=== PATIENT | male | born 1975 | race Caucasian/White ===

== ENCOUNTER 2018-05-01 13:31 | Emergency (ER) | payer OTHER ==
[2018-05-01] MEDS ORDERED: Ondansetron 4 MG Tab.DIS ONE (14:00)
--- NOTE | 2018-05-01 15:25 | EDM.PDOC ---
ED HPI GENERAL MEDICAL PROBLEM - General Chief Complaint: General Stated Complaint: VERTIGO Time Seen by Provider: 05/01/18 13:40 Source of Information: Reports: Patient History Limitations: Reports: No Limitations - History of Present Illness INITIAL COMMENTS - FREE TEXT/NARRATIVE: Pt claims that he woke up today morning and turned to the right side of the bed and felt a sudden onset of spinning sensation, asso with severe nausea. The episodes lasted for about 1 minutes nd made hm very sick. No vomiting. Since then he claims that every time he tilts his head to right side make his have vertigo. No fever or chills. No runny nose or cough. Episodes are not asso with chest pain, syncope, shortness of breath. The episodes last very short. Onset: Today Onset Date: 05/01/18 Onset Time: 07:00 Severity: Mild Improves with: Reports: None Worsens with: Reports: None Associated Symptoms: Denies: Confusion, Chest Pain, Cough, Diaphoresis, Fever/ Chills, Headaches, Nausea/Vomiting, Rash, Seizure, Shortness of Breath, Syncope , Weakness ED ROS GENERAL - Review of Systems Review Of Systems: See Below Constitutional: Denies: Fever, Chills HEENT: Denies: Ear Pain, Rhinitis, Throat Pain, Throat Swelling Respiratory: Denies: Shortness of Breath, Pleuritic Chest Pain, Cough, Sputum Cardiovascular: Denies: Chest Pain, Lightheadedness GI/Abdominal: Denies: Abdominal Pain, Nausea, Vomiting Skin: Denies: Bruising, Pruritis, Rash Neurological: Reports: Dizziness. Denies: Confusion, Headache, Numbness, Paresthesia, Seizure, Syncope, Tingling, Tremors, Difficulty Walking, Weakness, Change in Speech, Gait Disturbance ED EXAM, GENERAL - Physical Exam Exam: See Below Exam Limited By: No Limitations General Appearance: Alert, WD/WN, No Apparent Distress Eye Exam: Bilateral Eye: EOMI, PERRL Ears: Normal External Exam, Normal Canal, Hearing Grossly Normal, Normal TMs Ear Exam: Bilateral Ear: Auricle Normal, Canal Normal, TM normal Nose: Normal Inspection, Normal Mucosa, No Blood Throat/Mouth: Normal Inspection, Normal Lips, Normal Teeth, Normal Gums, Normal Oropharynx, Normal Voice, No Airway Compromise Head: Atraumatic, Normocephalic Neck: Normal Inspection, Supple, Non-Tender, Full Range of Motion Respiratory/Chest: No Respiratory Distress, Lungs Clear, Normal Breath Sounds, No Accessory Muscle Use, Chest Non-Tender Cardiovascular: Normal Peripheral Pulses, Regular Rate, Rhythm, No Edema, No Gallop, No JVD, No Murmur, No Rub Neurological: Alert, Oriented, CN II-XII Intact, Normal Cognition, Normal Gait, Normal Reflexes, No Motor/Sensory Deficits, Other (On tilting the head at 30 degrees flexion. Pt does have elicitable vertigo when turned to right side lasts for 6-8 secs. ) Skin Exam: Warm, Intact Course - Vital Signs Text/Narrative:: Pt reassured that he has right inner ear labyrinthitis. This probably is viral in nature. Information given. I have started him on meclizine 25mg 3 times daily to be taken until the vertigo resolves. Zofran 4mg every 8 hrs as needed for nausea or vomiting.Avoid driving. Plenty of fluids. Return to emergency room if symptoms worsen. Departure - Departure Time of Disposition: 14:35 Disposition: Home, Self-Care 01 Condition: Fair Clinical Impression: Labyrinthine dysfunction of right ear - Discharge Information *PRESCRIPTION DRUG MONITORING PROGRAM REVIEWED*: Not Applicable *COPY OF PRESCRIPTION DRUG MONITORING REPORT IN PATIENT BREE: Not Applicable Instructions: Meclizine tablets or capsules, Vertigo, Aecm-zn-[id number], Labyrinthitis Forms: ED Department Discharge Additional Instructions: Take Meclizine 25mg (1 tab) three times a day as needed for dizziness/vertigo. Took one at 2:30pm. May take Zofran 4mg (1 tab) under the tongue every 8 hours as needed for nausea. Took one at 2:30pm. No driving Drink plenty of fluids. Move head slowly with eyes closed, then open eyes to look. - Problem List & Annotations (1) Labyrinthine dysfunction of right ear SNOMED Code(s): 2832811 Code(s): H83.2X1 - LABYRINTHINE DYSFUNCTION, RIGHT EAR Status: Acute - Problem List Review Problem List Initiated/Reviewed/Updated: Yes - Assessment/Plan Assessment:: right ear labyrinthitis Plan: Pt reassured that he has right inner ear labyrinthitis. This probably is viral in nature. Information given. I have started him on meclizine 25mg 3 times daily to be taken until the vertigo resolves. Zofran 4mg every 8 hrs as needed for nausea or vomiting.Avoid driving. Plenty of fluids. Return to emergency room if symptoms worsen.
== END 2018-05-01 14:34 | disposition home or self-care (01) ==
LOC: LB.ED 13:31
DX: H83.2X1 Labyrinthine dysfunction, right ear (principal); H83.01 Labyrinthitis, right ear
CPT/HCPCS: 99283; A9270

== ENCOUNTER 2019-05-17 13:14 | Emergency (ER) | payer OTHER ==
[2019-05-17 13:31] VITALS: BP 148/76; PULSE 78
--- NOTE | 2019-05-17 16:46 | EDM.PDOC ---
ED HPI GENERAL MEDICAL PROBLEM - General Chief Complaint: General Stated Complaint: LEFT ANKLE PAIN Time Seen by Provider: 05/17/19 13:30 Source of Information: Reports: Patient History Limitations: Reports: No Limitations - History of Present Illness INITIAL COMMENTS - FREE TEXT/NARRATIVE: This is a 43yo M here for a recent injury of the left ankle and foot. Patient states he had a fracture of the fibula in July and he injured the foot the same way today. He heard a pop like last time and felt he may have broken something. He rolled his foot inwards. 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, NSAIDS left ankle Pain Score (Numeric/FACES): 4 - Related Data Allergies Allergy/AdvReac Type Severity Reaction Status Date / Time topiramate [From Topamax] Allergy Blurred Verified 05/17/19 13:33 Vision Cvisqni-Zzj-Jax Reductase AdvReac Nausea Verified 05/17/19 13:33 Inhibitor Home Meds: Home Meds Aspirin [Wale Chewable] 81 mg PO DAILY 05/01/18 [History] Escitalopram Oxalate [Lexapro] 5 mg PO QPM 05/01/18 [History] Lisinopril [Zestril] 10 mg PO DAILY 05/01/18 [History] Watson-3/DHA/Epa/Fish Oil [Fish Oil 1,000 mg Softgel] 1 each PO BID 05/01/18 [ History] Propranolol HCl [Propranolol HCl ER] 120 mg PO DAILY 05/01/18 [History] Past Medical History HEENT History: Reports: Impaired Vision Cardiovascular History: Reports: Aneurysm, Heart Murmur, Hypertension Respiratory History: Reports: Pneumothorax, Sleep Apnea Musculoskeletal History: Reports: Fracture, Other (See Below) Other Musculoskeletal History: LA Fx <12 months ago Psychiatric History: Reports: Anxiety - Infectious Disease History Infectious Disease History: Reports: Chicken Pox - Past Surgical History HEENT Surgical History: Reports: Adenoidectomy, Naso-Sinus Surgery, Tonsillectomy Cardiovascular Surgical History: Reports: AAA Repair, Other (See Below) Other Cardiovascular Surgeries/Procedures: had complications from AAA repair surgery that required more extensive surgeries Social & Family History - Family History Family Medical History: Noncontributory - Tobacco Use Smoking Status *Q: Never Smoker Second Hand Smoke Exposure: No - Caffeine Use Caffeine Use: Reports: Coffee, Soda - Recreational Drug Use Recreational Drug Use: No ED ROS GENERAL - Review of Systems Review Of Systems: Comprehensive ROS is negative, except as noted in HPI. ED EXAM, GENERAL - Physical Exam Exam: See Below Exam Limited By: No Limitations General Appearance: Alert, WD/WN, Mild Distress Ears: Normal External Exam Nose: Normal Inspection Throat/Mouth: Normal Inspection Head: Atraumatic, Normocephalic Neck: Normal Inspection Respiratory/Chest: No Respiratory Distress Cardiovascular: Normal Peripheral Pulses Peripheral Pulses: 2+: Dorsalis Pedis (L), Dorsalis Pedis (R) GI/Abdominal: Normal Bowel Sounds Back Exam: Normal Inspection Extremities: Joint Swelling Neurological: Alert, Oriented Course - Vital Signs Last Recorded V/S: Last Vital Signs Temp 36.4 C 05/17/19 13:24 Pulse 78 05/17/19 13:24 Resp 18 05/17/19 13:24 BP 148/76 H 05/17/19 13:24 Pulse Ox 99 05/17/19 13:24 - Orders/Labs/Meds Orders: Active Orders 24 hr Category Date Time Status Ankle Min 3V Lt [CR] Stat Exams 05/17/19 13:36 Taken Departure - Departure Time of Disposition: 13:45 Disposition: Home, Self-Care 01 Condition: Good Clinical Impression: Left ankle sprain Qualifiers: Encounter type: initial encounter Involved ligament of ankle: calcaneofibular ligament Qualified Code(s): S93.412A - Sprain of calcaneofibular ligament of left ankle, initial encounter - Discharge Information Instructions: RICE Therapy for Routine Care of Injuries, [id number] Referrals: PCP,None [Primary Care Provider] - Forms: ED Department Discharge Additional Instructions: Keep applied walking boot in place to affected ankle for next week continuous in addition to use of crutches for this week, then may decrease use for 2 weeks to times when up and as needed. RICE therapy as instructed including ice to affected area on for 10-15 minutes every 1-2 hours to help alleviate swelling and pain. May also use Tylenol and/or Ibuprofen according to package instructions as needed for pain, in addition to regularly prescribed medications. Follow up with regular provider next week and as needed. Call with any questions. Sepsis Event Note - Evaluation Sepsis Screening Result: No Definite Risk - Focused Exam Vital Signs: Vital Signs Temp Pulse Resp BP Pulse Ox 05/17/19 13:24 36.4 C 78 18 148/76 H 99 Date Exam was Performed: 05/17/19 Time Exam was Performed: 16:42 - Problem List & Annotations (1) Left ankle sprain SNOMED Code(s): 49561894, [id number] Code(s): S93.402A - SPRAIN OF UNSPECIFIED LIGAMENT OF LEFT ANKLE, INIT ENCNTR Status: Acute Priority: High Current Visit: Yes Qualifiers: Encounter type: initial encounter Involved ligament of ankle: calcaneofibular ligament Qualified Code(s): S93.412A - Sprain of calcaneofibular ligament of left ankle, initial encounter - Problem List Review Problem List Initiated/Reviewed/Updated: Yes - My Orders Last 24 Hours: My Active Orders 05/17/19 13:36 Ankle Min 3V Lt [CR] Stat - Assessment/Plan Last 24 Hours: My Active Orders 05/17/19 13:36 Ankle Min 3V Lt [CR] Stat Plan: Counseled on left ankle supportive care and conservative therapy. Discussed xray results and imaging copy given as CD. Discussed close f/u and rtc or PCP for re-evaluation if symptoms persist. Patient counseled on aircast but it was too small, so patient placed in a walking boot and counseled on use of crutches for at least 1 week and then use of boot for 3 full weeks. Discussed gradual return to weight bearing and f/u with PCP.
--- NOTE | 2019-05-18 00:19 | CR ---
CLINICAL DATA: Left ankle injury/limited mobility. LEFT ANKLE, 17 MAY 2019: There is soft tissue swelling over the lateral malleolus. There is an oblique lucency through the distal fibula, consistent with a nondisplaced fracture. 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 There is a posterior calcaneal spur. No other acute abnormalities. Job: [id number] MTDD
== END 2019-05-17 14:07 | disposition home or self-care (01) ==
LOC: LB.ED 13:14
DX: S93.412A Sprain of calcaneofibular ligament of left ankle, initial encounter (principal); I10 Essential (primary) hypertension; F41.9 Anxiety disorder, unspecified; Z79.899 Other long term (current) drug therapy; Z98.890 Other specified postprocedural states; Z88.8 Allergy status to other drugs, medicaments and biological substances; X50.1XXA Overexertion from prolonged static or awkward postures, initial encounter
CPT/HCPCS: 73610-LT; 99283-25